=== PATIENT | female | born 1935 | race Caucasian/White ===

== ENCOUNTER 2016-09-18 22:41 | Emergency (ER) | payer MEDICARE, MEDICAID ==
[2016-09-18 22:42] VITALS: BMI 18.8
[2016-09-18 23:07] VITALS: BP 145/75; TEMP 97.3
[2016-09-18] MEDS ORDERED: Sodium Chloride 0.9% 500 ML IV ONE (23:22)
[2016-09-19 00:05] LABS: BASO % 0.5 % (0.0-2.0); EOS # 0.2 K/uL (0.0-0.7); EOS % 2.2 % (0.0-4.0); HEMATOCRIT 34.7 % (34.0-47.0); LYMPH # 2.1 K/uL (1.0-4.3); LYMPH % 24.2 % (20.0-40.0); MEAN CELL VOLUME 86.7 fL (81.0-99.0); MEAN CORPUSCULAR HEMOGLOBIN 27.6 pg (27.0-31.0); MEAN CORPUSCULAR HGB CONC 31.9 g/dL (33.0-37.0); MEAN PLATELET VOLUME 6.9 fL (7.2-11.7); MONO # 0.7 K/uL (0.0-0.8); MONO % 7.7 % (0.0-10.0); RED CELL DISTRIBUTION WIDTH 13.3 % (11.5-14.5); WHITE BLOOD COUNT 8.8 K/uL (4.8-10.8)
[2016-09-19] MEDS ORDERED: Sodium Chloride 0.9% 500 ML IV ONE (00:09)
[2016-09-19 00:14] LABS: CHLORIDE 95 mmol/L (98-107)
[2016-09-19 00:15] LABS: POTASSIUM 4.4 mmol/L (3.6-5.2); SODIUM 131 mmol/L (132-148)
[2016-09-19 00:17] LABS: AST/SGOT 24 U/L (14-36); BILIRUBIN,TOTAL 0.3 mg/dL (0.2-1.3); CARBON DIOXIDE 25 mmol/L (22-30); GFR AFRICAN-AMERICAN > 60
[2016-09-19 00:18] LABS: ALB/GLOB RATIO 1.2 (1.0-2.1); ALKALINE PHOSPHATASE 73 U/L (38-126); ALT/SGPT 27 U/L (9-52); BLOOD UREA NITROGEN 13 mg/dL (7-17); CALCIUM 9.1 mg/dl (8.6-10.4); GLUCOSE,RANDOM 164 mg/dL (65-105); TOTAL PROTEIN 7.5 g/dL (6.3-8.3)
--- NOTE | 2016-09-19 01:11 | C.PDOC ---
History Of Present Illness 81 year old patient, with a history of gall bladder disease, diabetes, hypertension, and arthritis, presents to the ED complaining of 7 episodes of watery stool since 2 hours prior to arrival. Patient has a history of diarrhea. Patient denies trying any new foods, fever, chest pain, shortness of breath, vomiting, abdominal pain, or urinary symptoms. Time Seen by Provider: 09/18/16 23:18 Chief Complaint (Nursing): Abdominal Pain History Per: Patient History/Exam Limitations: no limitations Onset/Duration Of Symptoms: Hrs (2 hours prior to arrival) Current Symptoms Are (Timing): Still Present Context: Other Severity: Mild Pain Scale Rating Of: 3 Radiation Of Pain To:: None Quality Of Discomfort: "Pain" Exacerbating Factors: None Alleviating Factors: None Last Bowel Movement: Today Recent travel outside of the [place]: No Abnormal Vaginal Bleeding: No Past Medical History Reviewed: Historical Data, Nursing Documentation, Vital Signs Vital Signs: Last Vital Signs Temp 97.3 F L 09/18/16 23:04 Pulse 80 09/19/16 01:41 Resp 17 09/19/16 01:41 BP 145/75 09/18/16 23:04 Pulse Ox 100 09/19/16 01:41 - Medical History PMH: Arthritis, Diabetes, Gall Bladder Disease (lap raymundo), HTN Surgical History: Cholecystectomy, Coronary Stent - [facility] Procedures CATARAC PHACOEMULS/ASPIR (11/06/12) INSERT LENS AT CATAR EXT (11/06/12) Family History: States: Unknown Family Hx - Social History Hx Tobacco Use: No Hx Alcohol Use: No Hx Substance Use: No - Immunization History Hx Tetanus Toxoid Vaccination: No Hx Influenza Vaccination: Yes Hx Pneumococcal Vaccination: Yes Review Of Systems Except As Marked, All Systems Reviewed And Found Negative. Constitutional: Negative for: Fever Cardiovascular: Negative for: Chest Pain Respiratory: Negative for: Shortness of Breath Gastrointestinal: Positive for: Diarrhea. Negative for: Vomiting, Abdominal Pain Genitourinary: Negative for: Dysuria Physical Exam - Physical Exam Appears: Non-toxic, No Acute Distress Skin: Warm, Dry Head: Atraumatic, Normacephalic Eye(s): bilateral: Normal Inspection, PERRL, EOMI Oral Mucosa: Moist Neck: Normal ROM, Supple Chest: Symmetrical Cardiovascular: Rhythm Regular Respiratory: Normal Breath Sounds, No Rales, No Rhonchi, No Wheezing Gastrointestinal/Abdominal: Soft, No Tenderness Back: Normal Inspection, No CVA Tenderness Extremity: Normal ROM Neurological/Psych: Oriented x3, Normal Speech, Normal Cognition Gait: Steady ED Course And Treatment - Laboratory Results Result Diagrams: 09/19/16 00:01 09/19/16 00:01 Lab Interpretation: Normal O2 Sat by Pulse Oximetry: 97 (RA) Pulse Ox Interpretation: Normal - Radiology CXR: Interpreted by Me CXR Interpretation: Yes: No Acute Disease - Other Rad abd x 2 X-Ray: Interpreted by Me (scant stool in colon, ++ a/f levels in SB c/w diarrhea ) Progress Note: Plan: EKG, Labs, Obstructive Series, IV fluids, Immodium, Toradol Reevaluation Time: 01:06 Reassessment Condition: Improved - Physician Consult Information Outcome Of Conversation: [id number]: unsuccessful attempts to contact Dr. Renato Lucas. family wants to take pt home- BRAT diet educated. Medical Decision Making Medical Decision Making: recurrent diarrhea, NOT colitis Disposition Doctor Will See Patient In The: Office Counseled Patient/Family Regarding: Studies Performed, Diagnosis - Disposition Referrals: Renato Lin MD [Staff Provider] - Disposition: HOME/ ROUTINE Disposition Time: 01:12 Condition: GOOD Additional Instructions: BRAT diet: Bananas, white rice, applesauce, toast/bread, Gatorade. Immodium 2 mg every 4-6 hours as needed for watery diarrhea Follow-up with Dr. Lin tomorrow. Instructions: Acute Diarrhea (ED) - Clinical Impression Clinical Impression: Diarrhea - Scribe Statement The provider has reviewed the documentation as recorded by the Scribe Sandhya Jeronimo Provider Attestation: All medical record entries made by the Scribe were at my direction and personally dictated by me. I have reviewed the chart and agree that the record accurately reflects my personal performance of the history, physical exam, medical decision making, and the department course for this patient. I have also personally directed, reviewed, and agree with the discharge instructions and disposition.
[2016-09-19 01:22] LABS: URINE BILIRUBIN NEGATIVE (NEGATIVE); URINE BLOOD NEGATIVE (NEGATIVE); URINE COLOR Yellow (YELLOW); URINE GLUCOSE (UA) NORMAL (Normal); URINE KETONE NEGATIVE (NEGATIVE); URINE LEUKOCYTE ESTERASE NEG Leu/uL (Negative); URINE PROTEIN NEGATIVE (NEGATIVE); URINE UROBILINOGEN NORMAL mg/dL (0.2-1.0); WBC URINE 1 /hpf (0-5)
[2016-09-19 01:42] VITALS: PULSE 80; RESP 17
[2016-09-19 03:04] VITALS: O2SAT 97
--- NOTE | 2016-09-19 12:45 | RAD ---
PROCEDURE: Radiographs of the chest and abdomen (obstructive series) HISTORY: abd pain COMPARISON: No prior. TECHNIQUE: AP radiograph of the chest, with upright and supine radiographs of the abdomen. FINDINGS: CHEST: Lungs: Clear. Cardiovascular: Normal size heart. No pulmonary vascular congestion. Pleura: No pleural fluid. No pneumothorax. Other findings: None. ABDOMEN AND PELVIS: Bowel: Unremarkable bowel gas pattern. No evidence of mechanical obstruction. Free air: None. Bones: Mild lumbar levoscoliosis. Other findings: Surgical clips in right upper quadrant status post cholecystectomy. IMPRESSION: Unremarkable radiographs of chest and abdomen. No evidence of mechanical bowel obstruction.
== END 2016-09-19 01:41 | disposition home or self-care (01) ==
LOC: C.ER 22:41
DX: R19.7 Diarrhea, unspecified (principal)
CPT/HCPCS: 74022; 80053; 81001; 83690; 83880; 84484; 85025; 96374; 99284; J1885; J7040

== ENCOUNTER 2017-09-05 12:12 | Emergency (ER) | payer MEDICARE, MEDICAID ==
[2017-09-05 12:14] VITALS: BMI 18.5
[2017-09-05] MEDS ORDERED: Sodium Chloride 0.9% 1,000 ML IV ONE (12:33)
[2017-09-05] MEDS ORDERED: Sodium Chloride 0.9% 1,000 ML ONE (12:50)
--- NOTE | 2017-09-05 12:52 | C.PDOC ---
History Of Present Illness 82 y/o female with PMHx of HTN, CAD AND DM presents to ED with complaints of abdominal pain and back pain for 2 days. Patient reports normal bowel movement and urinary output. Patient denies vomiting, diarrhea, dysuria, fever, chills, hematuria or any other complaints at this time. Time Seen by Provider: 09/05/17 12:22 Chief Complaint (Nursing): Abdominal Pain History Per: Patient History/Exam Limitations: no limitations Onset/Duration Of Symptoms: Days Current Symptoms Are (Timing): Still Present Past Medical History Reviewed: Historical Data, Nursing Documentation, Vital Signs Vital Signs: Last Vital Signs Temp 97.5 F L 09/05/17 16:40 Pulse 68 09/05/17 16:40 Resp 14 09/05/17 16:40 BP 144/71 09/05/17 16:40 Pulse Ox 97 09/05/17 16:40 - Medical History PMH: Arthritis, Diabetes, Gall Bladder Disease (lap raymundo), HTN Surgical History: Cholecystectomy, Coronary Stent - [facility] Procedures CATARAC PHACOEMULS/ASPIR (11/06/12) INSERT LENS AT CATAR EXT (11/06/12) Family History: States: No Known Family Hx - Social History Hx Tobacco Use: No Hx Alcohol Use: No Hx Substance Use: No - Immunization History Hx Tetanus Toxoid Vaccination: No Hx Influenza Vaccination: Yes Hx Pneumococcal Vaccination: Yes Review Of Systems Constitutional: Negative for: Fever, Chills Gastrointestinal: Positive for: Abdominal Pain. Negative for: Nausea, Vomiting , Diarrhea Genitourinary: Negative for: Dysuria, Hematuria Musculoskeletal: Positive for: Back Pain Skin: Negative for: Rash Physical Exam - Physical Exam Appears: Non-toxic, No Acute Distress Skin: Warm, Dry, No Rash Head: Atraumatic, Normacephalic Oral Mucosa: Moist Neck: Normal ROM, Supple Cardiovascular: Rhythm Regular Respiratory: Normal Breath Sounds, No Rales, No Rhonchi, No Wheezing Gastrointestinal/Abdominal: Soft, Tenderness (Left sided abdominal), No Guarding , No Rebound Back: No CVA Tenderness Extremity: Normal ROM, Capillary Refill (<2 seconds) Neurological/Psych: Oriented x3, Normal Speech ED Course And Treatment - Laboratory Results Result Diagrams: 09/05/17 13:02 09/05/17 13:02 Lab Interpretation: Normal ECG: Interpreted By Me ECG Rhythm: Sinus Rhythm, L BBB ECG Interpretation: No Acute Changes, No Changes From Prior Rate From EC O2 Sat by Pulse Oximetry: 98 (RA) Pulse Ox Interpretation: Normal - CT Scan/US No standard instances Other Rad Studies (CT/US): Read By Radiologist, Radiology Report Reviewed CT/US Interpretation: FINDINGS: LOWER THORAX: Bibasilar atelectasis. Heart size normal. Coronary arterial and valvular calcifications. LIVER: Punctate calcified hepatic granuloma. No gross lesion or ductal dilatation. GALLBLADDER AND BILE DUCTS: Prior cholecystectomy with surgical clips in place. PANCREAS: Unremarkable. No gross lesion or ductal dilatation. SPLEEN: Unremarkable. ADRENALS: Unremarkable. No mass. KIDNEYS AND URETERS: Stable right interpolar 7 mm nonobstructing calculus. Right upper pole 2.4 cm parapelvic cyst. No hydronephrosis. No solid mass. VASCULATURE: Unremarkable. No aortic aneurysm. BOWEL: Colonic diverticulosis. No obstruction. APPENDIX: Unremarkable. Normal appendix. PERITONEUM: Unremarkable. No free fluid. No free air. LYMPH NODES: Unremarkable. No enlarged lymph nodes. BLADDER: Unremarkable. REPRODUCTIVE: Unremarkable. BONES: Multilevel degenerative changes. Osteopenia. No acute fracture. OTHER FINDINGS: None. IMPRESSION: Stable nonobstructing right nephrolith. Additional stable findings as above. Progress Note: CT abdomen/pelvis, blood work, ua, obstructive series ordered\. IV fluids administered. Treated with IVF NSS, tylenol 650 mg PO. On re- evaluation abdomen soft non-tender Reassessment Condition: Improved Disposition Counseled Patient/Family Regarding: Studies Performed, Diagnosis, Need For Followup, Rx Given - Disposition Disposition: HOME/ ROUTINE Disposition Time: 16:30 Condition: STABLE Prescriptions: Polyethylene Glycol 3350 [Miralax] 17 gm PO DAILY #20 powd.pack Instructions: Constipation in Adults, High Fiber Diet, Acute Abdomen (Belly Pain) Forms: [employer], [employer] ([place]) - POA Present On Arrival: None - Clinical Impression Clinical Impression: Constipation, Abdominal pain - PA / COMMERCIAL REPRESENTATIVE / Resident Statement MD/DO has reviewed & agrees with the documentation as recorded. - Scribe Statement The provider has reviewed the documentation as recorded by the Timothy Paredes All medical record entries made by the Deannaibtuyet were at my direction and personally dictated by me. I have reviewed the chart and agree that the record accurately reflects my personal performance of the history, physical exam, medical decision making, and the department course for this patient. I have also personally directed, reviewed, and agree with the discharge instructions and disposition.
[2017-09-05 13:08] LABS: BASO % 0.6 % (0.0-2.0); EOS # 0.1 K/uL (0.0-0.7); EOS % 1.2 % (0.0-4.0); HEMOGLOBIN 11.8 g/dL (11.0-16.0); LYMPH # 1.5 K/uL (1.0-4.3); LYMPH % 17.5 % (20.0-40.0); MEAN CORPUSCULAR HEMOGLOBIN 29.7 pg (27.0-31.0); MEAN CORPUSCULAR HGB CONC 33.4 g/dL (33.0-37.0); MEAN PLATELET VOLUME 7.3 fL (7.2-11.7); MONO # 0.5 K/uL (0.0-0.8); MONO % 5.5 % (0.0-10.0); NEUT # 6.4 K/uL (1.8-7.0); NEUT % 75.2 % (50.0-75.0); RBC 3.98 Mil/uL (3.80-5.20); WHITE BLOOD COUNT 8.5 K/uL (4.8-10.8)
[2017-09-05 13:11] LABS: MEAN CELL VOLUME 88.9 fL (81.0-99.0)
[2017-09-05 13:20] LABS: ALB/GLOB RATIO 1.2 (1.0-2.1); ALBUMIN 4.2 g/dL (3.5-5.0); ALT/SGPT 22 U/L (9-52); AST/SGOT 27 U/L (14-36); BLOOD UREA NITROGEN 14 mg/dL (7-17); CALCIUM 9.4 mg/dl (8.6-10.4); GFR AFRICAN-AMERICAN > 60; GFR NON-AFRICAN AMERICAN > 60; LIPASE 134 U/L (23-300)
--- NOTE | 2017-09-05 13:27 | RAD ---
PROCEDURE: Radiographs of the chest and abdomen (obstructive series) HISTORY: Abd Pain COMPARISON: Abdominal radiograph dated 11/02/2016; chest radiograph dated 09/18/2016. TECHNIQUE: AP radiograph of the chest, with upright and supine radiographs of the abdomen. FINDINGS: CHEST: Lungs: Clear. Cardiovascular: Normal size heart. Atherosclerotic aortic calcifications. No pulmonary vascular congestion. Pleura: No pleural fluid. No pneumothorax. Other findings: None. ABDOMEN AND PELVIS: Bowel: Unremarkable bowel gas pattern. Prominent amount of retained colonic stool. No evidence of mechanical obstruction. Free air: None. Bones: Degenerative changes. Other findings: Right upper quadrant surgical clips. Questionable right lower pole renal calculus. IMPRESSION: No focal consolidation or pleural effusion. No evidence of obstruction. Prominent amount of retained colonic stool. Questionable right lower pole renal calculus.
[2017-09-05 14:10] LABS: URINE BILIRUBIN NEGATIVE (NEGATIVE); URINE BLOOD NEGATIVE (NEGATIVE); URINE CLARITY Clear (Clear); URINE COLOR Colorless (YELLOW); URINE GLUCOSE (UA) NORMAL (Normal); URINE LEUKOCYTE ESTERASE NEG Leu/uL (Negative); URINE PROTEIN NEGATIVE (NEGATIVE); URINE UROBILINOGEN NORMAL mg/dL (0.2-1.0)
--- NOTE | 2017-09-05 15:36 | CT ---
PROCEDURE: CT Abdomen and Pelvis without intravenous contrast HISTORY: Pain COMPARISON: CT scan of the abdomen pelvis dated 03/11/2016. TECHNIQUE: Contiguous images were obtained from the domes of the diaphragms to the upper thighs without the administration of intravenous contrast. Oral contrast was not administered. Radiation dose: Total exam DLP = 258.6 mGy-cm. This CT exam was performed using one or more of the following dose reduction techniques: Automated exposure control, adjustment of the mA and/or kV according to patient size, and/or use of iterative reconstruction technique. FINDINGS: LOWER THORAX: Bibasilar atelectasis. Heart size normal. Coronary arterial and valvular calcifications. LIVER: Punctate calcified hepatic granuloma. No gross lesion or ductal dilatation. GALLBLADDER AND BILE DUCTS: Prior cholecystectomy with surgical clips in place. PANCREAS: Unremarkable. No gross lesion or ductal dilatation. SPLEEN: Unremarkable. ADRENALS: Unremarkable. No mass. KIDNEYS AND URETERS: Stable right interpolar 7 mm nonobstructing calculus. Right upper pole 2.4 cm parapelvic cyst. No hydronephrosis. No solid mass. VASCULATURE: Unremarkable. No aortic aneurysm. BOWEL: Colonic diverticulosis. No obstruction. APPENDIX: Unremarkable. Normal appendix. PERITONEUM: Unremarkable. No free fluid. No free air. LYMPH NODES: Unremarkable. No enlarged lymph nodes. BLADDER: Unremarkable. REPRODUCTIVE: Unremarkable. BONES: Multilevel degenerative changes. Osteopenia. No acute fracture. OTHER FINDINGS: None. IMPRESSION: Stable nonobstructing right nephrolith. Additional stable findings as above.
[2017-09-05 16:41] VITALS: BP 144/71; PULSE 68; RESP 14; TEMP 97.5
[2017-09-05 16:50] VITALS: O2SAT 98
--- NOTE | 2017-09-06 16:27 | CARD ---
APPROVED REPORT EKG Measurement Heart [id number] <Conclusion> Normal sinus rhythm Incomplete left bundle branch block Borderline ECG
== END 2017-09-05 16:47 | disposition home or self-care (01) ==
LOC: C.ER 12:12
DX: K59.00 Constipation, unspecified (principal); R10.9 Unspecified abdominal pain; E11.9 Type 2 diabetes mellitus without complications; I10 Essential (primary) hypertension; I25.10 Atherosclerotic heart disease of native coronary artery without angina pectoris
CPT/HCPCS: 74022; 74176; 80053; 81001; 83605; 83690; 85025; 93005; 96360; 99285; J7040

== ENCOUNTER 2017-10-15 21:40 | Emergency (ER) | payer MEDICARE, MEDICAID ==
[2017-10-15 21:40] VITALS: BMI 18.5
--- NOTE | 2017-10-15 22:00 | C.PDOC ---
History Of Present Illness patient presents with a few days of chest wall pain with cough. Pt has seen her pmd and started on antibiotics, without any relief. Speaking in complete sentences,. no f/c/n/v. Left chest wall pain is reproducible to palpations.Pt is very anxious. Time Seen by Provider: 10/15/17 22:00 Chief Complaint (Nursing): Chest Pain History Per: Patient History/Exam Limitations: no limitations Onset/Duration Of Symptoms: Days Current Symptoms Are (Timing): Still Present Context: Other Severity: Moderate Pain Scale Rating Of: 4 Quality: Dull, "Pain" Associated Symptoms: denies: Nausea, Dyspnea Exacerbating Factors: Turning, Movement Alleviating Factors: None Recent travel outside of the [place]: No Additional History Per: Patient, Family Past Medical History Reviewed: Historical Data, Nursing Documentation, Vital Signs Vital Signs: Last Vital Signs Temp 98.3 F 10/15/17 21:49 Pulse 85 10/16/17 00:05 Resp 20 10/16/17 00:05 BP 114/65 10/16/17 00:05 Pulse Ox 99 10/16/17 02:09 - Medical History PMH: Arthritis, Diabetes, Gall Bladder Disease (lap raymundo), HTN Denies: Chronic Kidney Disease Surgical History: Cholecystectomy, Coronary Stent - [facility] Procedures CATARAC PHACOEMULS/ASPIR (11/06/12) INSERT LENS AT CATAR EXT (11/06/12) Family History: States: No Known Family Hx - Social History Hx Tobacco Use: No Hx Alcohol Use: No Hx Substance Use: No - Immunization History Hx Tetanus Toxoid Vaccination: No Hx Influenza Vaccination: Yes Hx Pneumococcal Vaccination: Yes Review Of Systems Constitutional: Negative for: Fever, Chills ENT: Negative for: Throat Pain Cardiovascular: Negative for: Chest Pain, Palpitations Respiratory: Positive for: Cough, Shortness of Breath, Pleuritic Pain Gastrointestinal: Negative for: Nausea, Vomiting, Abdominal Pain Genitourinary: Negative for: Dysuria Musculoskeletal: Negative for: Back Pain Skin: Negative for: Rash Neurological: Negative for: Weakness Psych: Negative for: Anxiety Physical Exam - Physical Exam Appears: Non-toxic, No Acute Distress Skin: Warm, Dry Head: Normacephalic Eye(s): bilateral: Normal Inspection Oral Mucosa: Moist Neck: Supple Chest: Symmetrical, Tenderness (left chest wall, withpalpationand movement) Cardiovascular: Rhythm Regular Respiratory: No Rales, No Rhonchi, No Wheezing Gastrointestinal/Abdominal: Soft, No Tenderness, No Distention Back: Normal Inspection Extremity: Normal ROM Extremity: Bilateral: Atraumatic, Normal Color And Temperature, Normal ROM Pulses: Left Dorsalis Pedis: Normal, Right Dorsalis Pedis: Normal Neurological/Psych: Oriented x3, Normal Speech, Normal Cognition Gait: Steady ED Course And Treatment - Laboratory Results Result Diagrams: 10/15/17 23:05 10/15/17 23:05 ECG: Interpreted By Me, Viewed By Me ECG Rhythm: Sinus Rhythm (87), L BBB, Nonspecific Changes O2 Sat by Pulse Oximetry: 99 Pulse Ox Interpretation: Normal - Radiology CXR: Interpreted by Me, Viewed By Me - CT Scan/US CT chest Other Rad Studies (CT/US): Read By Radiologist, Radiology Report Reviewed CT/US Interpretation: FINDINGS: Limitations: Lack of intravenous contrast. Lungs: Minimal atelectasis/scarring. No consolidation. 0.4 cm subpleural nodule vs focal scarring. left lower lobe. Pleural space: No pneumothorax. No significant effusion. Heart: No cardiomegaly. No significant pericardial effusion. Coronary artery calcifications. Bones/joints: Mild degenerative changes of spine. No acute fracture. Soft tissues: Unremarkable. Vasculature: Unremarkable. No aneurysm. Lymph nodes: Few subcentimeter short axis mediastinal lymph nodes. Liver: Small calcification. Gallbladder and bile ducts: CholecystectomyKidneys and ureters: Small calculus within RIGHT kidney. Probable 2.2 cm RIGHT renal cyst. IMPRESSION: 1. No acute findings. 2. Pulmonary nodule. For low-risk patients, no follow-up is necessary. For high- risk patients. (smoking history or other known risk factors) an optional CT at 12 months could be performed. 3. Incidental/non-acute findings are described above. Thank you for allowing us to participate in the care of your patient. Dictated and Authenticated by: Red Fuller MD. 10/16/2017 1:41 AM Eastern Time ([place] & [place]) Reevaluation Time: 02:12 Reassessment Condition: Improved Medical Decision Making Medical Decision Making: Upon provider reevaluation patient is feeling better, is medically stable, and requires no further treatment in the ED at this time. Patient will be discharged home with Rx for tramadol . Counseling was provided and all questions were answered regarding diagnosis and need for follow up with dr lin. There is agreement to discharge plan. Return if symptoms persist or worsen. Disposition Counseled Patient/Family Regarding: Studies Performed, Diagnosis, Need For Followup, Rx Given - Disposition Referrals: Renato Lin MD [Staff Provider] - Disposition: HOME/ ROUTINE Disposition Time: 22:00 Condition: FAIR Additional Instructions: Please return if symptoms recur Prescriptions: traMADol [Ultram] 25 mg PO TID PRN #15 tab PRN Reason: Pain, Severe (8-10) Instructions: Chest Pain (DC), Chest Pain That Is Not Caused by the Heart (DC) Forms: [employer] ([place]rian) - Clinical Impression Clinical Impression: Costochondral chest pain
[2017-10-15] MEDS ORDERED: Aspirin 325 mg EC Tablets PO STA (22:58)
[2017-10-15 23:10] LABS: HEMOGLOBIN 12.1 g/dL (11.0-16.0); NRBC % 0.1 % (0.0-2.0); RBC 4.14 Mil/uL (3.80-5.20); WHITE BLOOD COUNT 6.6 K/uL (4.8-10.8)
[2017-10-15] MEDS ORDERED: Aspirin 325 mg EC Tablets PO ONE ×2 (23:12→23:20)
[2017-10-15 23:13] LABS: SQUAMOUS EPITHIAL 1 /hpf (0-5); URINE BACTERIA RARE (<OCC); URINE BILIRUBIN NEGATIVE (NEGATIVE); URINE BLOOD 1+ (NEGATIVE); URINE CLARITY Clear (Clear); URINE COLOR Colorless (YELLOW); URINE GLUCOSE (UA) NORMAL (Normal); URINE LEUKOCYTE ESTERASE NEG Leu/uL (Negative); URINE PROTEIN NEGATIVE (NEGATIVE); URINE UROBILINOGEN NORMAL mg/dL (0.2-1.0)
[2017-10-15 23:18] LABS: INR 0.9; PROTHROMBIN TIME 10.4 SECONDS (9.7-12.2)
[2017-10-15 23:20] LABS: BASO % 0.4 % (0.0-2.0); EOS % 0.2 % (0.0-4.0); LYMPH # 1.5 K/uL (1.0-4.3); LYMPH % 22.8 % (20.0-40.0); MEAN CELL VOLUME 85.8 fL (81.0-99.0); MEAN CORPUSCULAR HEMOGLOBIN 29.2 pg (27.0-31.0); MEAN CORPUSCULAR HGB CONC 34.1 g/dL (33.0-37.0); MEAN PLATELET VOLUME 7.5 fL (7.2-11.7); MONO # 0.8 K/uL (0.0-0.8); NEUT # 4.3 K/uL (1.8-7.0); NEUT % 64.6 % (50.0-75.0); RED CELL DISTRIBUTION WIDTH 12.7 % (11.5-14.5)
[2017-10-15 23:21] LABS: ALB/GLOB RATIO 1.1 (1.0-2.1); ALBUMIN 4.3 g/dL (3.5-5.0); ALT/SGPT 20 U/L (9-52); AST/SGOT 27 U/L (14-36); BLOOD UREA NITROGEN 11 mg/dL (7-17); CALCIUM 9.1 mg/dl (8.6-10.4); GFR AFRICAN-AMERICAN > 60; GFR NON-AFRICAN AMERICAN > 60
[2017-10-15 23:32] LABS: B-TYPE NATRIURETIC PEPTIDE 407 pg/mL (0-900)
[2017-10-15] MEDS ORDERED: Acetaminophen IV 1,000 MG in Premixed IV 1 EA IV ONE (23:37)
[2017-10-16 00:06] VITALS: RESP 20
--- NOTE | 2017-10-16 01:42 | CT ---
EXAM: CT Chest Without Intravenous Contrast CLINICAL HISTORY: 82 years old, female; Pain; Chest pain and chest wall pain; Additional info: Left chest wall pain TECHNIQUE: Axial computed tomography images of the chest without intravenous contrast. All CT scans at this facility use one or more dose reduction techniques, viz.: automated exposure control; ma/kV adjustment per patient size (including targeted exams where dose is matched to indication; i.e. head); or iterative reconstruction technique. Coronal and sagittal reformatted images were created and reviewed. COMPARISON: No relevant prior studies available. FINDINGS: Limitations: Lack of intravenous contrast. Lungs: Minimal atelectasis/scarring. No consolidation. 0.4 cm subpleural nodule vs focal scarring left lower lobe. Pleural space: No pneumothorax. No significant effusion. Heart: No cardiomegaly. No significant pericardial effusion. Coronary artery calcifications. Bones/joints: Mild degenerative changes of spine. No acute fracture. Soft tissues: Unremarkable. Vasculature: Unremarkable. No aneurysm. Lymph nodes: Few subcentimeter short axis mediastinal lymph nodes. Liver: Small calcification. Gallbladder and bile ducts: Cholecystectomy. Kidneys and ureters: Small calculus within RIGHT kidney. Probable 2.2 cm RIGHT renal cyst. IMPRESSION: 1. No acute findings. 2. Pulmonary nodule. For low-risk patients, no follow-up is necessary. For high-risk patients (smoking history or other known risk factors) an optional CT at 12 months could be performed. 3. Incidental/non-acute findings are described above.
[2017-10-16 02:37] VITALS: BP 110/65; PULSE 82; TEMP 98.1; O2SAT 97
--- NOTE | 2017-10-16 08:13 | RAD ---
Chest x-ray single frontal view History: Chest pain. Comparison: 03/11/2016 Findings: Biapical pleural thickening with upper lobe granulomatous changes. Diffuse increased interstitial lung markings. Minimal left basilar atelectasis. Calcification at the aortic knob. Degenerative changes in the spine and shoulders. Impression: Biapical pleural thickening with upper lobe granulomatous changes. Diffuse increased interstitial lung markings. Minimal left basilar atelectasis. Calcification at the aortic knob.
--- NOTE | 2017-10-18 00:04 | CARD ---
APPROVED REPORT EKG Measurement Heart [id number] AR [id number] <Conclusion> Normal sinus rhythm Possible Left atrial enlargement Left axis deviation Incomplete left bundle branch block ST & T wave abnormality, consider lateral ischemia Abnormal ECG
== END 2017-10-16 02:41 | disposition home or self-care (01) ==
LOC: C.ER 21:40
DX: R07.9 Chest pain, unspecified (principal); E11.9 Type 2 diabetes mellitus without complications; I10 Essential (primary) hypertension
CPT/HCPCS: 71045; 71250; 80053; 81001; 82948; 83880; 84484; 85025; 85610; 85730; 87040; 96374; 99285; J0131; J1885

== ENCOUNTER 2018-03-28 21:26 | Emergency (ER) | payer MEDICARE, MEDICAID ==
[2018-03-28 22:24] VITALS: BMI 24.0
[2018-03-28] MEDS ORDERED: Alum-Mag Hydrox-Simethicone Susp (30 mL) PO STA (22:24)
[2018-03-28] MEDS ORDERED: Alum-Mag Hydrox-Simethicone Susp (30 mL) ONE (22:52)
--- NOTE | 2018-03-28 22:59 | C.PDOC ---
History Of Present Illness 82 year old female presents to the ER with a complaint of vague left chest discomfort that is not reproducible. Patient was seen by Dr. George where he had a cardiac echo and stress test done in order to be cleared for an upper endoscopy for her chronic reflux. Patient states this feels like her usual reflux. Denies nausea, vomiting, fever, or chills. Time Seen by Provider: 03/28/18 22:23 History Per: Patient History/Exam Limitations: no limitations Onset/Duration Of Symptoms: Hrs Current Symptoms Are (Timing): Still Present Associated Symptoms: denies: Nausea, Dyspnea, Diaphoresis, Syncope Modifying Factors: None Exacerbating Factors: None Alleviating Factors: None Recent travel outside of the [place]: No Past Medical History Reviewed: Historical Data, Nursing Documentation, Vital Signs Family History: States: Unknown Family Hx Review Of Systems Constitutional: Negative for: Fever, Chills Cardiovascular: Positive for: Chest Pain. Negative for: Palpitations Respiratory: Negative for: Cough, Shortness of Breath Gastrointestinal: Negative for: Nausea, Vomiting, Abdominal Pain Neurological: Negative for: Weakness, Numbness Physical Exam - Physical Exam Appears: Non-toxic, Other (Thin old woman) Skin: Normal Color, Warm, Dry Head: Atraumatic, Normacephalic Eye(s): bilateral: Normal Inspection Oral Mucosa: Moist Neck: Normal, No Midline Cervical Tenderness, No Paracervical Tenderness, Supple Chest: Symmetrical, No Tenderness Cardiovascular: Rhythm Regular, No Murmur Respiratory: Normal Breath Sounds, No Rales, No Rhonchi, No Wheezing Gastrointestinal/Abdominal: Soft, No Tenderness Back: No CVA Tenderness Extremity: Normal ROM (x4) Neurological/Psych: Oriented x3, Normal Speech ED Course And Treatment - Laboratory Results Lab Interpretation: Normal (normal labs/trio) ECG: Interpreted By Me ECG Rhythm: Sinus Rhythm, L BBB ECG Interpretation: No Changes From Prior, Abnormal Rate From EC O2 Sat by Pulse Oximetry: 99 Pulse Ox Interpretation: Normal - Radiology CXR: Interpreted by Me CXR Interpretation: Yes: No Acute Disease Progress Note: vague chest discomfort improved immediatly with Maalox PO Reevaluation Time: 22:59 Reassessment Condition: Improved Medical Decision Making Medical Decision Making: prob GERD Card w/u neg neg nuclear stress and card 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 Instructions: Acid Reflux (Gastroesophageal Reflux Disease), Adult (DC) - Clinical Impression Clinical Impression: GERD (gastroesophageal reflux disease) - Scribe Statement The provider has reviewed the documentation as recorded by the Scribe Prakash Miramontes All medical record entries made by the Scribe were at my direction and personally dictated by me. I have reviewed the chart and agree that the record accurately reflects my personal performance of the history, physical exam, medical decision making, and the department course for this patient. I have also personally directed, reviewed, and agree with the discharge instructions and disposition.
[2018-03-28 23:00] VITALS: O2SAT 99
[2018-03-28 23:59] LABS: BASO # 0.1 K/uL (0.0-0.2); BASO % 0.7 % (0.0-2.0); EOS # 0.2 K/uL (0.0-0.7); EOS % 2.1 % (0.0-4.0); HEMOGLOBIN 11.7 g/dL (11.0-16.0); LYMPH # 2.9 K/uL (1.0-4.3); MEAN CELL VOLUME 85.1 fL (81.0-99.0); MEAN CORPUSCULAR HEMOGLOBIN 28.8 pg (27.0-31.0); MEAN CORPUSCULAR HGB CONC 33.9 g/dL (33.0-37.0); MEAN PLATELET VOLUME 7.2 fL (7.2-11.7); MONO # 0.5 K/uL (0.0-0.8); MONO % 6.2 % (0.0-10.0); NEUT # 4.2 K/uL (1.8-7.0); NRBC % 0.1 % (0.0-2.0); RBC 4.06 Mil/uL (3.80-5.20); RED CELL DISTRIBUTION WIDTH 13.2 % (11.5-14.5); WHITE BLOOD COUNT 7.8 K/uL (4.8-10.8)
[2018-03-29 00:31] LABS: BLOOD UREA NITROGEN 15 mg/dL (7-17); GFR NON-AFRICAN AMERICAN > 60
[2018-03-29 00:32] LABS: ALB/GLOB RATIO 1.4 (1.0-2.1); ALBUMIN 4.5 g/dL (3.5-5.0); ALT/SGPT 25 U/L (9-52); AST/SGOT 25 U/L (14-36); CALCIUM 9.7 mg/dl (8.6-10.4)
[2018-03-29 00:33] LABS: AMYLASE 98 U/L (30-110)
--- NOTE | 2018-03-29 09:55 | RAD ---
Date of service: 03/28/2018 HISTORY: CHEST PAIN COMPARISON: FINDINGS: LUNGS: Mild hyperinflation with slight paucity of the bronchovascular markings in the upper lung verduzco. Rule out the emphysema and or COPD. There appears to be some minimal scarring and or atelectasis left lung base. PLEURA: No significant pleural effusion identified, no pneumothorax apparent. CARDIOVASCULAR: Heart size is within range of normal. OSSEOUS STRUCTURES: No significant abnormalities. VISUALIZED UPPER ABDOMEN: Normal. OTHER FINDINGS: None. IMPRESSION: Mild hyperinflation; rule out underlying COPD or emphysema. Minor left basilar atelectasis and or scarring
--- NOTE | 2018-04-01 11:06 | CARD ---
APPROVED REPORT Date of service: 03/28/2018 EKG Measurement Heart [id number] CT 136P80 [id number] <Conclusion> Sinus rhythm with premature atrial complexes ILBBB Possible Left atrial enlargement Septal infarct, age undetermined ST & T wave abnormality, consider lateral ischemia Abnormal ECG
== END 2018-03-28 23:39 | disposition home or self-care (01) ==
LOC: MERGE 21:26 → C.ER 21:26
DX: K21.9 Gastro-esophageal reflux disease without esophagitis (principal)